=== PATIENT | male | born 1970 | race Caucasian/White ===

== ENCOUNTER → 2023-10-01 07:48 | Outpatient (REF) | payer OTHER, SELFPAY | LOC: HWRAD 07:48 | PROVIDERS: ATTENDING PHYSICIAN Internal Medicine Cardiovascular Disease; FAMILY PHYSICIAN Family Medicine | DX: R06.09 Other forms of dyspnea (principal); I77.810 Thoracic aortic ectasia | CPT/HCPCS: 71275; Q9967 ==